=== PATIENT | male | born 1965 | race Caucasian/White ===

== ENCOUNTER 2019-06-09 17:47 | Inpatient (IN) | payer BC ==
[2019-06-09] MEDS ORDERED: ADENOSINE 6 MG/ 2ML VIAL IV ONE ×3 (18:08→18:50)
[2019-06-09] MEDS ORDERED: NA CHLORIDE 0.9% 2,000 ML ONE (18:09)
[2019-06-09 18:12] LABS: Absolute Lymphocytes (CBC) 1.6 K/uL (0.7-4.9); Hematocrit 51.5 % (39.6-49.0); Lymphocytes % 14.4 % (15.3-44.8); MPV 8.9 fL (7.6-11.3); RBC Red Blood Cell Count 5.72 M/uL (4.33-5.43)
[2019-06-09 18:14] LABS: Protime INR 1.33
[2019-06-09] MEDS ORDERED: FENTANYL CITR 100 MCG/2 ML ONE ×2 (18:17→19:04)
[2019-06-09] MEDS ORDERED: METOPROLOL TARTRATE 5 MG/5 ML INJ IV ONE (18:26)
[2019-06-09] MEDS ORDERED: MIDAZOLAM HCL 2 MG/2 ML INJ ONE ×2 (18:27→18:58)
[2019-06-09 18:31] LABS: ALT/SGPT 42 U/L (12-78); AST/SGOT 16 U/L (15-37); Albumin 4.3 g/dL (3.4-5.0); Alkaline Phosphatase 82 U/L (45-117); BUN Blood Urea Nitrogen 18 mg/dL (7-18); Bicarbonate 26 mmol/L (21-32); Bilirubin Direct 0.2 mg/dL (0-0.2); Bilirubin Total 0.9 mg/dL (0.2-1.0); Glucose Level 90 mg/dL (74-106); Magnesium 2.4 mg/dL (1.8-2.4); NT PRO-BNP 82 pg/mL (<125); Protein, Total 8.5 g/dL (6.4-8.2); Sodium Level 140 mmol/L (136-145); Troponin (Emerg Dept Use Only) < 0.02 ng/mL (0.0-0.045)
[2019-06-09] MEDS ORDERED: METOPROLOL TAR 25 MG TAB ONE ×2 (18:46→19:13)
--- NOTE | 2019-06-09 19:25 | RAD REPORT ---
EXAM DESCRIPTION: RAD - Chest Single View - 06/09/2019 7:09 pm CLINICAL HISTORY: CHEST PAIN COMPARISON: Chest Pa And Lat (2 Views) dated 12/02/2018; CHEST PA AND LAT 2 VIEW dated 04/25/2012None. TECHNIQUE: AP portable chest image was obtained 06/09/2019 7:09 pm . FINDINGS: Slightly underinflated lung henning noted. No peripheral mass consolidation. Heart size is normal. Central vasculature and central interstitial pattern is fractionally increased over the lion rison. No measurable pleural effusion and no pneumothorax. No acute bony abnormality seen. No acute a ortic findings suspected. IMPRESSION: Vasculature and lung markings centrally are slightly increased over comparison. Minimal failure or volume overload is suspected but needs correlation with clinical presentation.
--- NOTE | 2019-06-09 20:37 | EDPHYS ---
Physician Documentation [facility] Name: Efren Bernabe Age: 54 yrs Sex: Male : 1965 Arrival Date: 06/09/2019 Time: 17:49 Bed 18 Private MD: Venkatesh Mendoza ED Physician Pavel Almeida HPI: 06/09 18:55 This 54 yrs old Male presents to ER via Wheelchair with complaints of Rapid la1 heart rate. 18:55 The patient presents with a history of heart racing. Context: The symptoms occur at la1 rest. Onset: The symptoms/episode began/occurred this morning. Duration: The patient or guardian reports a single episode, that is still ongoing. Modifying factors: The symptoms are aggravated by nothing. The symptoms are alleviated by nothing. Associated signs and symptoms: Pertinent positives: lightheadedness, near-syncope, Pertinent negatives: chest pain, cough. Severity of symptoms: At their worst the symptoms were severe in the emergency department the symptoms are unchanged. The patient has experienced similar episodes in the past, several times. Pt reports he has hx of SVT, usually is able to vagal out of it at home. Pt has continuous episode since this morning. Has never had to been shocked or had adenosine before. . Historical: - Allergies: 18:11 oseltamivir phosphate; iw 18:11 Sulfa (Sulfonamide Antibiotics); iw - Home Meds: 18:11 aspirin 81 mg Oral TbEC 1 tab once daily [Active]; Cymbalta 20 mg Oral cpDR 1 cap daily iw [Active]; 18:56 etodolac 300 mg Oral cap 1 cap 2 times per day [Active]; tw2 - PMHx: 18:11 Anxiety; Depression; SVT; iw - PSHx: 18:56 R arm surgery; L knee surgery; leg vascular surgery; tw2 - Immunization history:: Adult Immunizations. - Social history:: Smoking status: . - Ebola Screening: : Patient denies travel to an Ebola-affected area in the 21 days before illness onset. ROS: 18:56 Eyes: Negative for injury, pain, redness, and discharge. la1 18:56 Constitutional: Negative for fever, chills, and weight loss, ENT: Negative for injury, pain, and discharge, Neck: Negative for injury, pain, and swelling. 18:56 Respiratory: Negative for shortness of breath, cough, wheezing, and pleuritic chest pain, Abdomen/GI: Negative for abdominal pain, nausea, vomiting, diarrhea, and constipation, Back: Negative for injury and pain, MS/Extremity: Negative for injury and deformity, Neuro: Negative for headache, weakness, numbness, tingling, and seizure. 18:56 Constitutional: 18:56 Cardiovascular: Positive for palpitations. Exam: 18:57 Head/Face: Normocephalic, atraumatic. Eyes: Periorbital areas with no swelling, la1 redness, or edema. ENT: . Mucous membranes moist. Neck: Trachea midline Chest/axilla: Normal chest wall appearance and motion. Nontender with no deformity. No lesions are appreciated. 18:57 Respiratory: Lungs have equal breath sounds bilaterally, clear to auscultation Abdomen/GI: Soft, non-tender, with normal bowel sounds. No guarding or rebound. No evidence of tenderness throughout. Back: No spinal tenderness. No costovertebral tenderness. Full range of motion. MS/ Extremity: Pulses equal, no cyanosis. Neurovascular intact. Full, normal range of motion. Neuro: Awake and alert, GCS 15, oriented to person, place, time, and situation. 18:57 Constitutional: The patient appears alert, awake, non-diaphoretic, well groomed, well nourished, anxious, uncomfortable. 18:57 Cardiovascular: Rate: tachycardic, actual rate is 187 bpm, Rhythm: regular, Pulses: Pulses are 3+ in right radial artery and left radial artery. Heart sounds: normal, normal S1and S2, Edema: is not appreciated. 18:57 ECG was reviewed by the Attending Physician. Vital Signs: 18:07 BP 123 / 76; Pulse 195; Resp 20; Temp 98.2; Pulse Ox 95% on R/A; iw 18:27 BP 105 / 55; Pulse 163; Resp 17; Pulse Ox 97% on 2 lpm NC; tw2 18:27 BP 102 / 66; Pulse 174; Resp 18; Pulse Ox 100% on 2 lpm NC; tw2 18:29 BP 118 / 91; Pulse 189; Resp 17; Pulse Ox 95% on 2 lpm NC; tw2 18:33 Pulse 114; tw2 18:44 Weight 106.59 kg (R); tw2 18:52 BP 101 / 56; Pulse 165; Resp 14; Pulse Ox 96% on 2 lpm NC; tw2 18:52 BP 101 / 56; Pulse 164; tw2 19:40 BP 103 / 54; Pulse 158; Resp 18; Pulse Ox 98% ; ea 20:10 BP 107 / 77; Pulse 161; Resp 18; Pulse Ox 100% ; ea 21:25 BP 96 / 55; Pulse 155; Resp 18; Temp 98; Pulse Ox 99% ; ea 22:12 BP 105 / 83; Pulse 160; Resp 18; Pulse Ox 99% on R/A; ea Procedures: 19:13 Cardioversion: (synchronized) for treatment of SVT, with 200 joules X 1. 300 joules X rn 1. Post procedure rhythm is sinus rhythm, the patient tolerated the procedure well. Moderate sedation: Pre-procedure assessment: the patient has been NPO 4 hour(s) prior to arrival, ASA physical classification: I - healthy, no underlying organic disease, Airway assessment: able to hyperextend neck, able to maintain airway, can open mouth without difficulty, Monitoring during procedure: cardiac monitor technician, continuous pulse oximetry, nurse at bedside at all times, Medications employed: Fentanyl, Versed, Post-procedure assessment: the patient is mildly sedated, Respiratory status: even and unlabored, a reversal agent was not used. MDM: 18:15 Patient medically screened. la1 20:12 Data reviewed: vital signs, nurses notes, EKG, radiologic studies, I have discussed the la1 patient's presentation/case with the attending Emergency Department Physician; and as a result, I will admit patient. Data interpreted: Pulse oximetry: on room air is 96 %. Interpretation: normal. Test interpretation: by ED physician or midlevel provider: ECG. Counseling: I had a detailed discussion with the patient and/or guardian regarding: the historical points, exam findings, and any diagnostic results supporting the discharge/admit diagnosis, the presence of at least one elevated blood pressure reading (>120/80) during this emergency department visit, lab results, radiology results, the need for further work-up and treatment in the hospital. Medication response: adenosine, metoprolol. Response to treatment: There is no appreciated change of the patient's symptoms at this time. Physician consultation: Brian Onofre MD was called at 19:00, was contacted at 19:05, regarding patient's condition, rec. admit to ICU, no new meds at this time. 20:37 ED course: Admitting physician present in ED, discussed case with Dr. Onofre again, no la1 new orders received, pt will be monitored in ICU overnight and Dr. Onofre will see in the morning. . 06/09 18:00 Order name: Basic Metabolic Panel; Complete Time: 18:59 [facility] 06/09 18:00 Order name: CBC with Diff; Complete Time: 18:59 [facility] 06/09 18:00 Order name: LFT's; Complete Time: 18:59 [facility] 06/09 18:00 Order name: Magnesium; Complete Time: 18:59 [facility] 06/09 18:00 Order name: NT PRO-BNP; Complete Time: 18:59 [facility] 06/09 18:00 Order name: PT-INR; Complete Time: 18:59 [facility] 06/09 18:00 Order name: Troponin (emerg Dept Use Only); Complete Time: 18:59 [facility] 06/09 22:03 Order name: Lipid Profile [facility] 06/09 22:03 Order name: Lipid Profile [facility] 06/09 22:03 Order name: CBC with Automated Diff [facility] 06/09 22:03 Order name: CBC with Automated Diff [facility] 06/09 22:03 Order name: Comprehensive Metabolic Panel [facility] 06/09 22:03 Order name: Comprehensive Metabolic Panel [facility] 06/09 22:03 Order name: Magnesium [facility] 06/09 18:00 Order name: XRAY Chest (1 view); Complete Time: 19:29 [facility] 06/09 22:03 Order name: Echo with Doppler [facility] 06/09 22:03 Order name: Magnesium [facility] 06/09 22:04 Order name: CKMB Creatine Kinase MB [facility] 06/09 22:04 Order name: CKMB Creatine Kinase MB [facility] 06/09 22:04 Order name: CKMB Creatine Kinase MB [facility] 06/09 22:04 Order name: CKMB Creatine Kinase MB [facility] 06/09 22:04 Order name: Troponin I [facility] 06/09 22:04 Order name: Troponin I [facility] 06/09 22:04 Order name: Troponin I [facility] 06/09 22:04 Order name: Troponin I [facility] 06/09 22:04 Order name: Thyroid Stimulating Hormone [facility] 06/09 22:04 Order name: Thyroid Stimulating Hormone [facility] 06/09 22:04 Order name: Urinalysis [facility] 06/09 18:00 Order name: EKG; Complete Time: 18:02 [facility] 06/09 18:00 Order name: Cardiac monitoring; Complete Time: 18:54 [facility] 06/09 18:00 Order name: EKG - Nurse/Tech; Complete Time: 18:54 [facility] 06/09 18:00 Order name: IV Saline Lock; Complete Time: 18:54 [facility] 06/09 18:00 Order name: Labs collected and sent; Complete Time: 18:55 [facility] 06/09 18:00 Order name: O2 Per Protocol; Complete Time: 18:55 [facility] 06/09 18:00 Order name: O2 Sat Monitoring; Complete Time: 18:55 [facility] 06/09 22:03 Order name: Heart Healthy [facility] Administered Medications: 18:08 Drug: Adenosine 12 mg Route: IVP; Site: right antecubital; tw2 18:50 Follow up: Response: No adverse reaction; No change in condition tw2 18:19 Drug: fentaNYL (PF) 25 mcg Route: IVP; Site: right antecubital; tw2 18:51 Follow up: Response: No adverse reaction tw2 18:20 Drug: Adenosine 12 mg Route: IVP; Site: right antecubital; tw2 18:43 Follow up: Response: No adverse reaction; No change in condition tw2 18:24 Drug: fentaNYL (PF) 25 mcg Route: IVP; Site: right antecubital; tw2 18:50 Follow up: Response: No adverse reaction tw2 18:25 Drug: Versed 1 mg Route: IVP; Site: right antecubital; tw2 18:51 Follow up: Response: No adverse reaction tw2 18:25 Drug: Versed 0.5 mg Route: IVP; Site: right antecubital; tw2 18:58 Follow up: Response: No adverse reaction tw2 18:27 Drug: fentaNYL (PF) 50 mcg Route: IVP; Site: right antecubital; tw2 18:51 Follow up: Response: No adverse reaction; RASS: Drowsy (-1) tw2 18:29 Drug: Versed 0.5 mg Route: IVP; Site: right antecubital; tw2 18:51 Follow up: Response: No adverse reaction tw2 18:32 Drug: Metoprolol 2.5 mg Route: IVP; Site: right antecubital; tw2 18:51 Follow up: Response: No adverse reaction tw2 18:35 Drug: Metoprolol 2.5 mg Route: IVP; Site: right antecubital; tw2 18:50 Follow up: Response: No adverse reaction tw2 18:41 CANCELLED (Duplicate Order): Adenocard 12 mg IVP once tw2 18:49 Drug: Adenosine 12 mg Route: IVP; Site: right antecubital; tw2 18:52 Follow up: BP 101 / 56; Pulse 164 bpm; Response: No adverse reaction; No change in tw2 condition 18:58 Drug: Versed 1 mg Route: IVP; Site: right antecubital; tw2 18:58 Follow up: Response: No adverse reaction tw2 19:00 Drug: NS 0.9% 1000 ml Route: IV; Rate: 1 bolus; Site: right antecubital; ea 19:28 Follow up: Response: No adverse reaction; IV Status: Completed infusion; IV Intake: ea 1000ml 19:02 Drug: Versed 1 mg Route: IVP; Site: right antecubital; ea 19:14 Follow up: Response: No adverse reaction ea 19:02 Drug: fentaNYL (PF) 25 mcg Route: IVP; Site: right antecubital; ea 19:14 Follow up: Response: No adverse reaction; Pain is decreased ea 19:04 Drug: fentaNYL (PF) 25 mcg Route: IVP; Site: right antecubital; ea 19:14 Follow up: Response: No adverse reaction ea 19:08 Drug: Metoprolol 5 mg Route: IVP; Site: right antecubital; ea 19:15 Follow up: Response: No adverse reaction ea 19:12 Drug: Metoprolol 25 mg Route: PO; ea 19:15 Follow up: Response: No adverse reaction ea Disposition: 06/10 08:13 Co-signature as Attending Physician, Pavel Almeida MD. rn Disposition: 06/09/19 20:37 Hospitalization ordered by Leeanna Stanley for Inpatient Admission. Preliminary diagnosis is Supraventricular tachycardia. - Bed requested for Intensive Care Unit. - Status is Inpatient Admission. ea - Condition is Stable. - Problem is new. - Symptoms are unchanged. UTI on Admission? No Signatures: Dispatcher [employer] EDMS Rolf Vicente PA PA jmm Williams, Irene, RN RN iw Pavel Almeida MD MD rn Johnson Delaney, CONTROLS DESIGN ENGINEER-C CONTROLS DESIGN ENGINEER-Cla1 Susanna Avila, RN RN tl1 Jesica Burris, KHANH RN tw2 Zulma Bustamante RN RN ea Corrections: (The following items were deleted from the chart) 06/09 18:41 18:34 Adenocard 12 mg IVP once ordered. tw2 tw2 21:27 20:37 Hospitalization Ordered by Leeanna Stanley MD for Inpatient Admission. Preliminary tl1 diagnosis is Supraventricular tachycardia. Bed requested for Intensive Care Unit. Status is Inpatient Admission. Condition is Stable. Problem is new. Symptoms are unchanged. UTI on Admission? No. la1 23:43 21:27 06/09/2019 20:37 Hospitalization Ordered by Leeanna Stanley MD for Inpatient ea Admission. Preliminary diagnosis is Supraventricular tachycardia. Bed requested for Intensive Care Unit. Status is Inpatient Admission. Condition is Stable. Problem is new. Symptoms are unchanged. UTI on Admission? No. tl1
--- NOTE | 2019-06-09 20:37 | ER ---
Nurse's Notes [facility] Name: Efren Bernabe Age: 54 yrs Sex: Male : 1965 Arrival Date: 06/09/2019 Time: 17:49 Bed 18 Private MD: Venkatesh Mendoza Diagnosis: Supraventricular tachycardia Presentation: 06/09 18:00 Presenting complaint: Patient states: been feeling his heart race off and on all day, iw hx of SVT, usually can make it stop on his own, pt also feeling like he was going to pass out. Transition of care: patient was not received from another setting of care. Onset of symptoms was June 09, 2019. Risk Assessment: Do you want to hurt yourself or someone else? Patient reports no desire to harm self or others. Initial Sepsis Screen: Does the patient meet any 2 criteria? No. Patient's initial sepsis screen is negative. Does the patient have a suspected source of infection? No. Patient's initial sepsis screen is negative. Care prior to arrival: None. 18:00 Method Of Arrival: Wheelchair iw 18:00 Acuity: MIN 1 iw Triage Assessment: 18:00 General: Appears ill, Behavior is cooperative. Pain: Denies pain. Cardiovascular: tw2 Reports diaphoresis, palpitations. Historical: - Allergies: 18:11 oseltamivir phosphate; iw 18:11 Sulfa (Sulfonamide Antibiotics); iw - Home Meds: 18:11 aspirin 81 mg Oral TbEC 1 tab once daily [Active]; Cymbalta 20 mg Oral cpDR 1 cap daily iw [Active]; 18:56 etodolac 300 mg Oral cap 1 cap 2 times per day [Active]; tw2 - PMHx: 18:11 Anxiety; Depression; SVT; iw - PSHx: 18:56 R arm surgery; L knee surgery; leg vascular surgery; tw2 - Immunization history:: Adult Immunizations. - Social history:: Smoking status: . - Ebola Screening: : Patient denies travel to an Ebola-affected area in the 21 days before illness onset. Screenin:29 Abuse screen: Denies threats or abuse. Nutritional screening: No deficits noted. tw2 Tuberculosis screening: No symptoms or risk factors identified. Fall Risk None identified. Assessment: 18:00 General: Appears uncomfortable, well groomed, Behavior is cooperative, anxious. Pain: iw Denies pain. Neuro: Level of Consciousness is awake, alert, obeys commands, Oriented to person, place, time, situation, Moves all extremities. Full function. Cardiovascular: Reports lightheadedness, palpitations, Patient's skin is warm and dry. Rhythm is SVT. Cardiovascular: Heart tones S1 S2 present Pulses are all present. Respiratory: Airway is patent Respiratory effort is even, unlabored, Respiratory pattern is regular, symmetrical. GI: Abdomen is flat, non-distended. Musculoskeletal: Range of motion: intact in all extremities. 18:08 Reassessment: provider BETO Bear at bedside at this time, medication orders tw2 given. 18:29 Reassessment: Dr. Almeida at bedside at this time. tw2 18:56 Reassessment: xray at bedside at this time. tw2 19:55 General: Appears in no apparent distress. Behavior is appropriate for age. Neuro: Level ea of Consciousness is awake, alert, obeys commands, Oriented to person, place, time, situation. Respiratory: Airway is patent Respiratory effort is even, unlabored, Respiratory pattern is regular, symmetrical. Derm: Skin is pink, warm \T\ dry. 20:49 Reassessment: Patient and/or family updated on plan of care and expected duration. Pain ea level reassessed. Patient is alert, oriented x 3, equal unlabored respirations, skin warm/dry/pink. 20:53 Reassessment: Patient and/or family updated on plan of care and expected duration. Pain ea level reassessed. Patient is alert, oriented x 3, equal unlabored respirations, skin warm/dry/pink. Hospitalist at bedside. 22:56 Reassessment: Patient and/or family updated on plan of care and expected duration. Pain ea level reassessed. Patient is alert, oriented x 3, equal unlabored respirations, skin warm/dry/pink. Report given to receiving ICU nurse. 23:10 Reassessment: Patient and/or family updated on plan of care and expected duration. Pain ea level reassessed. Patient is alert, oriented x 3, equal unlabored respirations, skin warm/dry/pink. Pt admitted to ICU, left ED via stretcher per nurse. Pt accompanied by family. Pt tolerated well. Vital Signs: 18:07 BP 123 / 76; Pulse 195; Resp 20; Temp 98.2; Pulse Ox 95% on R/A; iw 18:27 BP 105 / 55; Pulse 163; Resp 17; Pulse Ox 97% on 2 lpm NC; tw2 18:27 BP 102 / 66; Pulse 174; Resp 18; Pulse Ox 100% on 2 lpm NC; tw2 18:29 BP 118 / 91; Pulse 189; Resp 17; Pulse Ox 95% on 2 lpm NC; tw2 18:33 Pulse 114; tw2 18:44 Weight 106.59 kg (R); tw2 18:52 BP 101 / 56; Pulse 165; Resp 14; Pulse Ox 96% on 2 lpm NC; tw2 18:52 BP 101 / 56; Pulse 164; tw2 19:40 BP 103 / 54; Pulse 158; Resp 18; Pulse Ox 98% ; ea 20:10 BP 107 / 77; Pulse 161; Resp 18; Pulse Ox 100% ; ea 21:25 BP 96 / 55; Pulse 155; Resp 18; Temp 98; Pulse Ox 99% ; ea 22:12 BP 105 / 83; Pulse 160; Resp 18; Pulse Ox 99% on R/A; ea ED Course: 17:49 Patient arrived in ED. mr 17:50 Venkatesh Mendoza MD is Private Physician. mr 18:00 Bed in low position. Call light in reach. Adult w/ patient. pt placed on life pack at tw2 this time. child monitor on. Pulse ox on. NIBP on. Notified ED physician of vital signs. Notified Nurse Practitioner and/or Physician Assembler Garment Form of. 18:00 Arm band placed on. tw2 18:00 Inserted saline lock: 20 gauge in right antecubital area, using aseptic technique. tw2 Blood collected. 18:10 Triage completed. iw 18:12 Jesica Burris RN is Primary Nurse. tw2 18:15 Johnson Del[facility]C [facility] la1 18:15 Pavel Almeida MD is Attending Physician. la1 18:33 Assist provider with cardioversion (unsynchronized) with pads, for treatment of SVT tw2 with 200 joules X 1. Set up for procedure. Performed by Pavel Almeida MD Monitored with quality assurance monitor final, pulse ox, Post procedure rhythm is unchanged. Patient tolerated Latrice Phillips NP, BETO Mckinnon, and KHANH Vega at bedside at this time. 18:55 Johnson Delaney FNP-C is [facility]. la1 19:05 Report given to KHANH Ramirez. tw2 19:06 Assist provider with cardioversion with pads, for treatment of SVT with 300 joules Set ea up for procedure. Performed by Pavel Almeida MD Monitored with quality assurance monitor final, pulse ox, Post procedure rhythm is sinus rhythm. Patient tolerated well. 19:10 XRAY Chest (1 view) In Process Unspecified. EDMS 20:36 Leeanna Stanley MD is Hospitalizing Provider. la1 20:53 Patient admitted, IV remains in place. ea Administered Medications: 18:08 Drug: Adenosine 12 mg Route: IVP; Site: right antecubital; tw2 18:50 Follow up: Response: No adverse reaction; No change in condition tw2 18:19 Drug: fentaNYL (PF) 25 mcg Route: IVP; Site: right antecubital; tw2 18:51 Follow up: Response: No adverse reaction tw2 18:20 Drug: Adenosine 12 mg Route: IVP; Site: right antecubital; tw2 18:43 Follow up: Response: No adverse reaction; No change in condition tw2 18:24 Drug: fentaNYL (PF) 25 mcg Route: IVP; Site: right antecubital; tw2 18:50 Follow up: Response: No adverse reaction tw2 18:25 Drug: Versed 1 mg Route: IVP; Site: right antecubital; tw2 18:51 Follow up: Response: No adverse reaction tw2 18:25 Drug: Versed 0.5 mg Route: IVP; Site: right antecubital; tw2 18:58 Follow up: Response: No adverse reaction tw2 18:27 Drug: fentaNYL (PF) 50 mcg Route: IVP; Site: right antecubital; tw2 18:51 Follow up: Response: No adverse reaction; RASS: Drowsy (-1) tw2 18:29 Drug: Versed 0.5 mg Route: IVP; Site: right antecubital; tw2 18:51 Follow up: Response: No adverse reaction tw2 18:32 Drug: Metoprolol 2.5 mg Route: IVP; Site: right antecubital; tw2 18:51 Follow up: Response: No adverse reaction tw2 18:35 Drug: Metoprolol 2.5 mg Route: IVP; Site: right antecubital; tw2 18:50 Follow up: Response: No adverse reaction tw2 18:41 CANCELLED (Duplicate Order): Adenocard 12 mg IVP once tw2 18:49 Drug: Adenosine 12 mg Route: IVP; Site: right antecubital; tw2 18:52 Follow up: BP 101 / 56; Pulse 164 bpm; Response: No adverse reaction; No change in tw2 condition 18:58 Drug: Versed 1 mg Route: IVP; Site: right antecubital; tw2 18:58 Follow up: Response: No adverse reaction tw2 19:00 Drug: NS 0.9% 1000 ml Route: IV; Rate: 1 bolus; Site: right antecubital; ea 19:28 Follow up: Response: No adverse reaction; IV Status: Completed infusion; IV Intake: ea 1000ml 19:02 Drug: Versed 1 mg Route: IVP; Site: right antecubital; ea 19:14 Follow up: Response: No adverse reaction ea 19:02 Drug: fentaNYL (PF) 25 mcg Route: IVP; Site: right antecubital; ea 19:14 Follow up: Response: No adverse reaction; Pain is decreased ea 19:04 Drug: fentaNYL (PF) 25 mcg Route: IVP; Site: right antecubital; ea 19:14 Follow up: Response: No adverse reaction ea 19:08 Drug: Metoprolol 5 mg Route: IVP; Site: right antecubital; ea 19:15 Follow up: Response: No adverse reaction ea 19:12 Drug: Metoprolol 25 mg Route: PO; ea 19:15 Follow up: Response: No adverse reaction ea Intake: 19:28 IV: 1000ml; Total: 1000ml. ea Outcome: 20:37 Decision to Hospitalize by Provider. la1 20:51 Instructed on the need for admit, Demonstrated understanding of instructions. ea 22:57 Admitted to ICU accompanied by nurse, via stretcher, room 7, on monitor, with chart, ea Report called to Receiving nurse in ICU 22:57 Condition: stable 23:43 Patient left the ED. ea Signatures: Dispatcher [facility] Desi Alatorre Irene, RN RN iw Johnson Delaney, NEEDLE PUNCH MACHINE OPERATOR HELPER-C NEEDLE PUNCH MACHINE OPERATOR HELPER-Cla1 Jesica Burris RN RN tw2 Zulma Bustamante RN RN ea Corrections: (The following items were deleted from the chart) 18:49 18:45 Assist provider with cardioversion (unsynchronized) with pads, for treatment of tw2 SVT with 200 joules X 1. Set up for procedure. Performed by Pavel Almeida MD Monitored with quality assurance monitor final, pulse ox, Post procedure rhythm is unchanged. Patient tolerated Dr. Almeida, Latrice, GONZÁLEZ, BETO Mckinnon, and KHANH Vega at bedside at this time. tw2
[2019-06-09] MEDS ORDERED: MORPHINE 4 MG/ML SYR IV PRN (22:00)
[2019-06-09] MEDS ORDERED: ONDANSETRON 4 MG/2 ML VIAL IV PRN (22:00)
--- NOTE | 2019-06-09 22:06 | P.HP ---
Certification for Inpatient With expected LOS: >2 Midnights Practitioner: I am a practitioner with admitting privileges, knowledge of patient current condition, hospital course, and medical plan of care. Services: Services provided to patient in accordance with Admission requirements found in Title 42 Section 412.3 of the Code of Federal Regulations Patient History Date of Service: 06/10/19 Reason for admission: SVT/palpitations/sob/ History of Present Illness: mick rucker is a 54yoM w/ pmhx of PE, DVT, SVT x 10 yrs and not on anti- arrythmic therapy, protein S deficiency/antiphospholipid syndrome who presented to the ED w/ palpitations, dizziness and weakness. he states that he was first made aware of having SVT 10 years ago, visited a track maintainer and has never had an ablation or started on anti arrhythmic medications. in 2012 he was first dx w / a lower extremity superficial thrombosis and treated w/ anti coagulation of which he was removed from. he then again found to have dvt again in 2015 and again treated and discontinued. he then in 2018 found to have dvt and PE and started on anticoagulation. he was removed from treatment and then sent to a tow motor operator after which found to have protein S deficiency/antiphospholipid syndrome and thus restarted on anticoagulation and has been restarted on xarelto 20mg daily since feb 2019. today he reports that he woke this AM feeling "sick" with 2 days of raspy/itchy throat, congestion, cough w/ clear phelgm, and overrall mild malaise. he states he had a recent episode of feeling this way when diagnosed w/ blood clotting factor deficiencies. he states that the morning of admission he took the OTC generic brand of night quil. unclear of whether before or after the medication he states that he started to have racing HR and palpitations. he states that he would bear down (valsalva maneuver) and take deep breaths that would essentially break the fast HR for a few seconds and then the racing heart would return. he has down this home treatment severally over the last 10 years with resolution of his s/s and has never been hospitalized due to SVT, however this time he was unable to improve his HR with his home maneuvers. in the ER his HR went up to 185 and he was met w/ adenosine x3, IV and PO betablocker administration and shocks x2 w/ 200 and 300J. each time/intervention helped to improve the speed of his HR but overrall he remained tachycardic up to 150's. cardiology has seen pt in the ED as well, with plausible need for ablation in the morning. denies n/v/cp/otero/LE swelling, tobacco, drug or etoh use. 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 he has not had his age appropriate cancer screening - colonoscopy. Allergies oseltamivir phosphate [From Tamiflu] Allergy (Verified 04/25/12 16:52) Rash Sulfa (Sulfonamide Antibiotics) [Sulfa(Sulfonamide Antibiotics)] Allergy ( Verified 04/25/12 16:52) Rash Home Medications: Aspirin [Aspirin EC 81 MG] 81 mg PO DAILY 06/10/19 Duloxetine [Cymbalta Dalayed Release Pellets] 20 mg PO DAILY 06/10/19 L.acidoph,Paracasei, B.lactis [Probiotic] 1 each PO DAILY 06/10/19 Omeprazole 20 mg PO DAILY 06/10/19 Rivaroxaban [Xarelto] 20 mg PO DAILY 06/10/19 - Past Medical/Surgical History Diabetic: No -: tachycardia Dr Mendoza -: depression -: superficial thrombosis in left calf in 2012. Tx blood thinners. -: L knee scope -: rt hand surg -: L inguinalhernia repair -: and interventional vascular. killed the varcious superifical -: .....veins. killed with saline inj - Family History Mother -: Heart disease, Diabetes Father -: Heart disease Sister -: Diabetes - Social History Alcohol use: No CD- Drugs: No Caffeine use: Yes Review of Systems General: Weakness Eyes: Unremarkable ENT: Other (itching throat and raspy voice) Respiratory: Cough, SOB with Excertion Cardiovascular: Light Headedness Gastrointestinal: Unremarkable Genitourinary: Unremarkable Musculoskeletal: Unremarkable Integumentary: Unremarkable Neurological: Unremarkable Physical Examination - Physical Exam General: Alert, In no apparent distress, Oriented x3, Cooperative, Other ( appears concerned, no acute or respiratory distress) HEENT: Atraumatic, PERRLA Neck: Supple Respiratory: Normal air movement, Other (no rales) Cardiovascular: No edema, No murmurs, Other (tachycardia) Capillary refill: <2 Seconds Gastrointestinal: Normal bowel sounds, Soft and benign, Non-distended, No guarding Musculoskeletal: No clubbing Neurological: Normal speech, Other (gait not tested) External genitalia: Deferred Rectal: Deferred - Studies Laboratory Data (last 24 hrs) 06/09/19 18:02: PT 15.5 H, INR 1.33 06/09/19 18:02: WBC 11.1 H, Hgb 17.1, Hct 51.5 H, Plt Count 259 06/09/19 18:02: Sodium 140, Potassium 4.0, BUN 18, Creatinine 1.73 H, Glucose 90 , Magnesium 2.4, Total Bilirubin 0.9, AST 16, ALT 42, Alkaline Phosphatase 82 Assessment and Plan - Plan 54yoM admitted w/ SVT HR ~155 after adenosine, BB and shocks x2 w/ 200 and 300J admit to ICU trend CE, obtain tsh, a1c and lipid panel TTE, cardio consulted monitor on tele will start BB PO in the AM monitor o2 sat and monitor for signs of becoming unstable. protein S deficiency/ antiphospholipid deficiency c/w xarelto DVT ppx - already on xarelto - will continue - Advance Directives Does patient have a Living Will: No Does patient have a Durable POA for Healthcare: No
--- NOTE | 2019-06-09 23:19 | CON ---
Identifying Information: A 54-year-old man. Reason For Consult: SVT, supraventricular tachycardia. History Of Present Illness: Mr. Bernabe has had SVT off and on for about 10 years, all the other spel ls have been fine. This morning, he took a NyQuil because of a scratchy throat, it may have had a ps eudoephedrine-type drug within it and about 10 o'clock this morning went into SVT. He came to the em ergency room, he was successfully gotten out of SVT 3 different times with adenosine and with direct current cardioversion, but each time he has reverted back into SVT, remains in SVT. He takes Eliquis because of a clotting disorder. He has lupus anticoagulant and protein S deficiency, never had a pu lmonary embolus or DVT. He has never had an ablation. No history of myocardial infarction or stroke . Does not have diabetes, dyslipidemia, or hypertension. Never had myocardial infarction, stroke, a ny coronary interventions. He has had stress tests and other noninvasive workups that have been norm al. He does not use tobacco. Physical Examination: General: Alert, oriented, pleasant, not in distress. Lungs: Clear. Heart: Regular, very rapid about 170 beats per minute. Abdomen: Soft. Extremities: No edema, cyanosis, or clubbing. Laboratory Data: EKG when he is in sinus rhythm showed sinus tach, left atrial abnormality. Otherwi se, he is in a narrow complex rhythm. No change in the QRS or ST segments. Heart rate about 160 sourav ts per minute. 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 Most likely, he could otero ve an accessory pathway. We will continue to give beta-blockers, withhold any drugs that would be li ke pseudoephedrine and if he fails to revert to sinus rhythm overnight with beta blockers, we will get Electrophysiology consult to take over. He probably needs AV node modification. CHAVA/MODL Voice ID: [id number] Report ID: [id number]
[2019-06-09] MEDS: NA CHLORIDE 0.9% 1,000 ML IV SCH (23:52)
[2019-06-10 00:23] VITALS: BMI 33.8
[2019-06-10 02:24] LABS: Troponin I 0.13 ng/mL (0.0-0.045)
[2019-06-10 03:47] LABS: Urine Appearance CLEAR; Urine Bilirubin NEGATIVE (NEG); Urine Blood NEGATIVE (NEG); Urine Color YELLOW; Urine Glucose NEGATIVE (NEG); Urine Protein NEGATIVE (NEG); Urine Urobilinogen 0.2 mg/dL (0.2-1.0); Urine pH 6.5 (5.0-7.0)
[2019-06-10 04:10] LABS: Urine Microscopic Reflex NO UMIC
[2019-06-10 05:23] LABS: Absolute Lymphocytes (CBC) 1.7 K/uL (0.7-4.9); Basophils % 1.1 % (0-1.3); Hematocrit 42.8 % (39.6-49.0); Lymphocytes % 22.4 % (15.3-44.8); MPV 9.4 fL (7.6-11.3); RBC Red Blood Cell Count 4.75 M/uL (4.33-5.43)
[2019-06-10 05:59] LABS: Albumin 3.3 g/dL (3.4-5.0); Bilirubin Total 0.4 mg/dL (0.2-1.0); Magnesium 2.4 mg/dL (1.8-2.4); Protein, Total 6.8 g/dL (6.4-8.2); Thyroid Stimulating Hormone 1.26 uIU/mL (0.360-3.740)
[2019-06-10] MEDS ORDERED: METOPROLOL TAR 50 MG TAB PO SCH (09:00)
[2019-06-10 10:39] LABS: CKMB Creatine Kinase MB 1.3 ng/mL (0.3-3.6); Troponin I 0.14 ng/mL (0.0-0.045)
[2019-06-10 12:49] VITALS: O2SAT 100
--- NOTE | 2019-06-10 13:38 | EKG ---
Test Date: 2019-06-10 Test Time: 00:50:27 Supervisor Paste Plant: PRINCE MEASUREMENT RESULTS: Intervals: Rate: 75 NH: 134 QRSD: 88 QT: 370 QTc: 413 [place]: P: 50 NH: 134 QRS: 77 T: 35 INTERPRETIVE STATEMENTS: Normal sinus rhythm Normal ECG Compared to ECG 06/09/2019 19:15:56 Supraventricular tachycardia no longer present Electronically Signed On 06-10-19 13:37:05 SHIFT STACKER by Sin De Anda
--- NOTE | 2019-06-10 13:39 | EKG ---
Test Date: 2019-06-09 Test Time: 19:12:42 Windshield Repair Technician: PRINCE MEASUREMENT RESULTS: Intervals: Rate: 96 NC: 156 QRSD: 94 QT: 336 QTc: 424 [place]: P: 57 NC: 156 QRS: 40 T: 47 INTERPRETIVE STATEMENTS: Normal sinus rhythm Possible Left atrial enlargement Borderline ECG Compared to ECG 06/09/2019 18:35:47 Atrial premature complex(es) no longer present Electronically Signed On 06-10-19 13:37:10 RESPIRATORY TECH by Sin De Anda
--- NOTE | 2019-06-10 13:39 | EKG ---
Test Date: 2019-06-09 Test Time: 18:35:47 Financial Adviser: PRINCE MEASUREMENT RESULTS: Intervals: Rate: 91 HI: 158 QRSD: 94 QT: 312 QTc: 383 [place]: P: 61 HI: 158 QRS: 36 T: 47 INTERPRETIVE STATEMENTS: Sinus rhythm with blocked premature atrial complexes Possible Left atrial enlargement Borderline ECG Compared to ECG 06/09/2019 18:25:04 Atrial premature complex(es) now present Supraventricular tachycardia no longer present ST (T wave) deviation no longer present Electronically Signed On 06-10-19 13:37:45 HOME HEALTH CAREGIVER by Sin De Anda
--- NOTE | 2019-06-10 13:39 | EKG ---
Test Date: 2019-06-09 Test Time: 18:25:04 Garbage Collection Supervisor: PRINCE MEASUREMENT RESULTS: Intervals: Rate: 187 [place]: QRSD: 76 QT: 252 QTc: 444 [place]: P: ME: QRS: 39 T: 50 INTERPRETIVE STATEMENTS: Supraventricular tachycardia Junctional ST depression, probably normal Borderline ECG Compared to ECG 06/09/2019 18:23:29 ST (T wave) deviation now present Sinus tachycardia no longer present Electronically Signed On 06-10-19 13:37:57 LABORER BRUSH CLEARING by Sin De Anda
--- NOTE | 2019-06-10 13:39 | EKG ---
Test Date: 2019-06-09 Test Time: 19:15:56 Shell Plater: PRINCE MEASUREMENT RESULTS: Intervals: Rate: 161 [place]: QRSD: 86 QT: 300 QTc: 491 [place]: P: OR: QRS: 44 T: 37 INTERPRETIVE STATEMENTS: Supraventricular tachycardia Otherwise normal ECG Compared to ECG 06/09/2019 19:12:42 Sinus rhythm no longer present Electronically Signed On 06-10-19 13:37:09 DEPARTMENT STORE DOOR GREETER by Sin De Anda
--- NOTE | 2019-06-10 13:40 | EKG ---
Test Date: 2019-06-09 Test Time: 18:06:58 Behavioral Science Chair: MACI MEASUREMENT RESULTS: Intervals: Rate: 197 [place]: 104 QRSD: 78 QT: 226 QTc: 409 [place]: P: CA: 104 QRS: 36 T: 53 INTERPRETIVE STATEMENTS: Sinus tachycardia with short CA Nonspecific ST abnormality Abnormal ECG Compared to ECG 06/09/2019 18:06:18 Short CA interval now present ST (T wave) deviation now present Electronically Signed On 06-10-19 13:38:01 DIRECTOR OF PSYCHOLOGY by Sin De Anda
--- NOTE | 2019-06-10 13:40 | EKG ---
Test Date: 2019-06-09 Test Time: 18:06:18 Fsr: MACI MEASUREMENT RESULTS: Intervals: Rate: 109 TN: 142 QRSD: 92 QT: 298 QTc: 401 [place]: P: 48 TN: 142 QRS: 32 T: 43 INTERPRETIVE STATEMENTS: Sinus tachycardia Possible Left atrial enlargement Borderline ECG Compared to ECG 12/04/2016 06:47:33 Sinus rhythm no longer present Electronically Signed On 06-10-19 13:38:02 BUS INSPECTOR by Sin De Anda
--- NOTE | 2019-06-10 13:40 | EKG ---
Test Date: 2019-06-09 Test Time: 18:17:00 Casino Runner: PRINCE MEASUREMENT RESULTS: Intervals: Rate: 188 [place]: QRSD: 82 QT: 244 QTc: 431 [place]: P: [place]: QRS: 39 T: 41 INTERPRETIVE STATEMENTS: Supraventricular tachycardia Nonspecific ST abnormality Abnormal ECG Compared to ECG 06/09/2019 18:06:58 Sinus tachycardia no longer present Short TX interval no longer present ST (T wave) deviation still present Electronically Signed On 06-10-19 13:38:00 SUPERVISOR DENTURE DEPARTMENT by Sin De Anda
--- NOTE | 2019-06-10 13:40 | EKG ---
Test Date: 2019-06-09 Test Time: 18:23:29 Ginning Operator: PRINCE MEASUREMENT RESULTS: Intervals: Rate: 117 [place]: 138 QRSD: 88 QT: 292 QTc: 407 [place]: P: 45 [place]: 138 QRS: 47 T: 40 INTERPRETIVE STATEMENTS: Sinus tachycardia Possible Left atrial enlargement Borderline ECG Compared to ECG 06/09/2019 18:17:00 Supraventricular tachycardia no longer present ST (T wave) deviation no longer present Electronically Signed On 06-10-19 13:37:58 FLOOR INSPECTOR by Sin De Anda
--- NOTE | 2019-06-10 14:29 | PN ---
Date of Progress Note: 06/10/2019 Subjective: Mr. Bernabe is 54, was admitted by Dr. Jenkins on 06/09/2019, and seen for SVT. This SVT h as been unresponsive to carotid massage, to other vagal maneuvers, was unresponsive to adenosine, unr esponsive to cardioversion. It keeps coming back at a rate of 150 to 170 despite beta-blockers. Thi s morning he was in SVT at a rate of 160 and he converted to sinus rhythm after carotid massage and i t came back after 1 minute. Plan: To send the patient for an ablation of an accessory pathway today by Dr. Gleason. Case was di scussed with Dr. Jenkins and Dr. Onofre. NB/MODL Voice ID: [id number] Report ID: [id number]
--- NOTE | 2019-06-10 14:38 | ECHO ---
HEIGHT: 6 ft 3 in WEIGHT: 271 lb 1.6 oz DATE OF STUDY: 06/10/[address]: Leeanna Stanley 2-DIMENSIONAL: YES M.MODE: YES DOPPLER: YES COLOR FLOW: YES TDS: NO PORTABLE: NO DEFINITY: NO BUBBLE STUDY: NO DIAGNOSIS: SUPRAVENTRICULAR TACHYCARDIA CARDIAC HISTORY: CATHERIZATION: NO SURGERY: NO PROSTHETIC VALVE: NO PACEMAKER: NO MEASUREMENTS (cm) DIASTOLIC (NORMALS) SYSTOLIC (NORMALS) IVSd 1.0 (0.6-1.2) LA Diam 3.8 (1.9-4.0) LVEF 56% LVIDd 4.9 (3.5-5.7) LVIDs 3.4 (2.0-3.5) %FS 29% LVPWd 1.0 (0.6-1.2) Ao Diam 3.0 (2.0-3.7) 2 DIMENSIONAL ASSESSMENT: RIGHT ATRIUM: NORMAL LEFT ATRIUM: NORMAL RIGHT VENTRICLE: NORMAL LEFT VENTRICLE: NORMAL TRICUSPID VALVE: NORMAL MITRAL VALVE: NORMAL PULMONIC VALVE: NORMAL AORTIC VALVE: NORMAL PERICARDIAL EFFUSION: NONE AORTIC ROOT: NORMAL LEFT VENTRICULAR WALL MOTION: NORMAL DOPPLER/COLOR FLOW: NORMAL COMMENTS: NORMAL 2D ECHOCARDIOGRAM WITH DOPPLER. NO MITRAL VALVE PROLAPSE. TECHNOLOGIST: Aston CISSE
[2019-06-10] MEDS: NA CHLORIDE 0.9% 1,000 ML IV SCH (14:44)
[2019-06-10 17:08] VITALS: BP 112/70
[2019-06-10 17:11] VITALS: TEMP 98.5
[2019-06-10] MEDS ORDERED: MORPHINE 2 MG/ML SYR IV PRN (18:00)
--- NOTE | 2019-06-10 23:50 | DS ---
Date of Discharge: 06/10/2019 Consultants: Dr. Onofre and Dr. De Anda with Cardiology. Discharge Diagnoses: 1.Supraventricular tachycardia status post adenosine shock x2. 2.Hypercoagulable state with protein S deficiency, antiphospholipid deficiency, on Xarelto. 3.Major depressive disorder, in remission on SSRI. 4.History of venous thromboembolism, on Xarelto. Hospital Course: Patient is a 54-year-old male, history of PE, DVT, SVT for 10 years, not on antiarr hythmic therapy on Xarelto due to protein S deficiency, antiphospholipid syndrome, comes in with palp itations. Usually the patient is able to terminate the SVT using home maneuvers including bearing do wn, however, he was unable to terminate this episode, came into the hospital, received 3 doses of cierra nosine, had to be shocked twice, but remained tachycardic. Patient was admitted to the hospital. Ca rdiology was consulted. He did have mild elevation in his troponin likely due to the cardioversion. Denied any chest pain. He did have elevated kidney function, which improved with IV fluids. Jamir quintana was then referred to Dr. Hughes at [facility] for ablation therapy and was accepted by hospitalist marisol Hughes, awaiting bed placement. Patient overall did well overnight. His heart rate has remai anish in the low 100, otherwise doing well. He will be transferred to [facility] once bed is available. Medications: As per medication reconciliation list. Diet: Heart healthy. Activity: As tolerated. Physical Examination: General: Awake, alert, and oriented x3. Obese male. CV: S1, S2. Respiratory: Moving air well bilaterally. Abdomen: Positive bowel sounds. Nondistended, nontender. Extremities: No clubbing, cyanosis, or edema. Neurologic: Nonfocal. Total time spent transferring the patient was 48 minutes. SA/MODL Voice ID: [id number] Report ID: [id number]
== END 2019-06-10 17:04 | disposition short-term general hospital (02) | DRG 309 ==
LOC: ER 17:47 → 3RD-ICU 23:09
PROVIDERS: ADMIT Internal Medicine; ATTEND Family Medicine
PROC: 5A2204Z Restoration of Cardiac Rhythm, Single (ICD-10-PCS; principal; 2019-06-10)
DX: I47.1 Supraventricular tachycardia (principal); D68.59 Other primary thrombophilia; F32.9 Major depressive disorder, single episode, unspecified
CPT/HCPCS: 36415; 71045; 80048; 80053; 80061; 80076; 81003; 82553; 83036; 83735; 83880; 84443; 84484; 85025; 85610; 92960; 93005; 93306; 96374; 96375; 99291; 99292; J0153; J2250; J3010; J7030

== ENCOUNTER 2020-02-04 00:46 | Emergency (ER) | payer BC ==
[2020-02-04] MEDS ORDERED: NA CHLORIDE 0.9% 1,000 ML ONE (01:52)
[2020-02-04 01:54] LABS: Absolute Lymphocytes (CBC) 1.4 K/uL (0.7-4.9); Basophils % 0.8 % (0-1.3); Hematocrit 48.9 % (39.6-49.0); Lymphocytes % 11.2 % (15.3-44.8); MPV 8.7 fL (7.6-11.3); RBC Red Blood Cell Count 5.34 M/uL (4.33-5.43)
[2020-02-04 02:01] LABS: Bilirubin Direct 0.2 mg/dL (0-0.2); Bilirubin Total 1.1 mg/dL (0.2-1.0); Potassium 3.9 mmol/L (3.5-5.1); Protein, Total 7.8 g/dL (6.4-8.2)
[2020-02-04] MEDS ORDERED: MEPERIDINE HCL 50 MG/ML ONE (03:37)
[2020-02-04] MEDS ORDERED: ONDANSETRON 4 MG/2 ML VIAL ONE (03:38)
--- NOTE | 2020-02-04 04:20 | ER ---
Nurse's Notes [facility] Name: Efren Bernabe Age: 54 yrs Sex: Male : 1965 Arrival Date: 02/04/2020 Time: 00:48 Bed 23 Private MD: Diagnosis: Acute sigmoid diverticulitis. Cholelithiasis. Fatty liver Chronic renal disease. 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 Pt denies F/V/N/D at this time, reports pain to feel as if gas pain/pressure, non radiating. Coronavirus screen: Client denies travel out of the [place] in the last 14 days. At this time, the client does not indicate any symptoms associated with coronavirus-19. Ebola Screen: Patient negative for fever greater than or equal to 101.5 degrees Fahrenheit, and additional compatible Ebola Virus Disease symptoms Patient denies exposure to infectious person. Patient denies travel to an Ebola-affected area in the 21 days before illness onset. No symptoms or risks identified at this time. Initial Sepsis Screen: Does the patient meet any 2 criteria? HR > 90 bpm. No. Patient's initial sepsis screen is negative. Does the patient have a suspected source of infection? Yes: Acute abdominal pain. Risk Assessment: Do you want to hurt yourself or someone else? Patient reports no desire to harm self or others. Onset of symptoms was February 04, 2020. Care prior to arrival: None. Transition of care: patient was not received from another setting of care. 01:11 Method Of Arrival: Ambulatory sg 01:11 Acuity: MIN 3 sg Historical: - Allergies: 01:02 oseltamivir phosphate; sg 01:02 Sulfa (Sulfonamide Antibiotics); sg - Home Meds: 01:02 aspirin 81 mg Oral TbEC 1 tab once daily [Active]; Cymbalta 20 mg Oral cpDR 1 cap daily sg [Active]; etodolac 300 mg Oral cap 1 cap 2 times per day [Active]; 01:16 "blood thinner" [Active]; sg - PMHx: 01:02 Anxiety; Depression; SVT; sg 01:16 Protein S deficiency; sg - PSHx: 01:02 R arm surgery; L knee surgery; leg vascular surgery; sg 01:16 Cardiac Ablation; sg - Immunization history:: Adult Immunizations up to date. - Social history:: Smoking status: Patient denies any tobacco usage or history of. Screenin:14 Abuse screen: Denies threats or abuse. Denies injuries from another. Nutritional sg screening: No deficits noted. Tuberculosis screening: No symptoms or risk factors identified. Never had TB. Fall Risk None identified. Assessment: 01:13 General: Appears in no apparent distress. uncomfortable, well groomed, well developed, sg well nourished, Behavior is calm, cooperative, appropriate for age. Neuro: Level of Consciousness is awake, alert, obeys commands, Oriented to person, place, time, Speech is normal, Facial symmetry appears normal. Cardiovascular: Capillary refill is brisk in bilateral fingers Patient's skin is warm and dry. Chest pain is denied. Respiratory: Airway is patent Respiratory effort is even, unlabored, Respiratory pattern is regular, symmetrical. GI: Bowel sounds present X 4 quads. Abd is soft X 4 quads Abdomen is tender to palpation in left upper quadrant. : No signs and/or symptoms were reported regarding the genitourinary system. EENT: No signs and/or symptoms were reported regarding the EENT system. Derm: Skin is pink, warm \\T\\ dry. Musculoskeletal: Circulation, motion, and sensation intact. Range of motion: intact in all extremities, Swelling absent. 01:29 Reassessment: at bedside assessing pt at this time, awaiting orders. sg 02:00 Reassessment: Patient appears in no apparent distress at this time. pt finished PO sg contrast, claims technician Skye notified. 02:11 Reassessment: Patient and/or family updated on plan of care and expected duration. Pain sg level reassessed. Patient is alert, oriented x 3, equal unlabored respirations, skin warm/dry/pink. awaiting CT scan at this time Patient states symptoms have not improved. 03:30 Reassessment: Patient appears in no apparent distress at this time. Patient and/or fu family updated on plan of care and expected duration. Pain level reassessed. Patient is alert, oriented x 3, equal unlabored respirations, skin warm/dry/pink. 04:37 Reassessment: Patient appears in no apparent distress at this time. Patient and/or fu family updated on plan of care and expected duration. Pain level reassessed. Patient is alert, oriented x 3, equal unlabored respirations, skin warm/dry/pink. pain subsided after Demerol IV was given Patient states feeling better. 05:38 Reassessment: Patient and/or family updated on plan of care and expected duration. Pain fu level reassessed. Patient asleep in bed, not in respiratory distress, IV Cipro ongoing. Vital Signs: 01:11 BP 125 / 88; Pulse 100; Resp 16; Temp 98.7(O); Pulse Ox 98% on R/A; Weight 104.33 kg; sg Height 6 ft. 3 in. (190.50 cm); Pain 4/10; 02:00 BP 132 / 85; Pulse 98; Resp 16; Pulse Ox 98% on R/A; Pain 5/10; fu 04:37 BP 108 / 59; Pulse 92; Resp 18; Temp 98.8(O); Pulse Ox 94% on R/A; Pain 3/10; fu 05:00 BP 108 / 55; Pulse 84; Resp 16; Pulse Ox 94% on R/A; Pain 0/10; fu 01:11 Body Mass Index 28.75 (104.33 kg, 190.50 cm) sg ED Course: 00:48 Patient arrived in ED. cf2 00:55 Jose Enrique Nye, RN is Primary Nurse. sg 01:02 Arm band placed on. sg 01:12 Triage completed. sg 01:13 Awaiting ED provider evaluation. sg 01:25 Rc Ceballos MD is Attending Physician. pkl 01:35 Initial lab(s) drawn, by tn, sent to lab. a green top has been given to [facility] for sg ISTAT testing prior to CT ordered. Inserted saline lock: 20 gauge in right antecubital area, using aseptic technique. Blood collected. 03:[address] via stretcher. sg 03:18 Zana Luther, RN is Primary Nurse. fu 03:22 Abdomen In Process Unspecified. EDMS 05:00 No provider procedures requiring assistance completed. fu 05:55 IV discontinued, bleeding controlled, Pressure dressing applied. fu Administered Medications: 01:47 Drug: NS 0.9% 1000 ml Route: IV; Rate: 1000 ml; Site: right antecubital; sg 03:33 Drug: Demerol 50 mg Route: IVP; Site: right antecubital; fu 04:03 Follow up: Response: Pain is decreased fu 03:33 Drug: Zofran (Ondansetron) 4 mg Route: IVP; Site: right antecubital; fu 04:25 Follow up: Response: No adverse reaction fu 04:26 Drug: Cipro 400 mg Volume: 200 ml; Route: IVPB; Infused Over: 60 mins; Site: right fu antecubital; 04:26 Drug: Flagyl 500 mg Volume: 100 ml; Route: IVPB; Rate: 200 ml/hr; Infused Over: 30 fu mins; Site: right antecubital; 04:54 Follow up: Response: No adverse reaction fu Outcome: 04:19 Discharge ordered by . [email or web address] 05:57 Patient left the ED. mw2 05:58 Discharged to home ambulatory. fu 05:58 Condition: good 05:58 Discharge instructions given to patient, Instructed on discharge instructions, Demonstrated understanding of instructions, follow-up care, Prescriptions given X 2. Signatures: Dispatcher [employer] Jose Enrique Garcia RN KHANH Rc Ceballos MD MD pkZana Nielsen RN Carlos Roberson 2 Radha Krueger 2
--- NOTE | 2020-02-04 04:20 | EDPHYS ---
Physician Documentation [facility] Name: Efren Bernabe Age: 54 yrs Sex: Male : 1965 Arrival Date: 02/04/2020 Time: 00:48 Bed 23 Private MD: ED Physician Rc Ceballos HPI: 02/03 01:44 This 54 yrs old Male presents to ER via Ambulatory with complaints of pkl Abdominal Pain. 01:44 The patient presents with abdominal pain in the left upper quadrant. Onset: The pkl symptoms/episode began/occurred just prior to arrival, 6 hour(s) ago. The symptoms do not radiate. Associated signs and symptoms: none. Historical: - Allergies: 01:02 oseltamivir phosphate; sg 01:02 Sulfa (Sulfonamide Antibiotics); sg - Home Meds: 01:02 aspirin 81 mg Oral TbEC 1 tab once daily [Active]; Cymbalta 20 mg Oral cpDR 1 cap daily sg [Active]; etodolac 300 mg Oral cap 1 cap 2 times per day [Active]; 01:16 "blood thinner" [Active]; sg - PMHx: 01:02 Anxiety; Depression; SVT; sg 01:16 Protein S deficiency; sg - PSHx: 01:02 R arm surgery; L knee surgery; leg vascular surgery; sg 01:16 Cardiac Ablation; sg - Immunization history:: Adult Immunizations up to date. - Social history:: Smoking status: Patient denies any tobacco usage or history of. ROS: 01:44 Eyes: Negative for injury, pain, redness, and discharge, ENT: Negative for injury, pkl pain, and discharge, Neck: Negative for injury, pain, and swelling, Cardiovascular: Negative for chest pain, palpitations, and edema, Respiratory: Negative for shortness of breath, cough, wheezing, and pleuritic chest pain. 01:44 Abdomen/GI: Positive for abdominal pain, of the left upper quadrant. 01:44 Back: Negative for acute changes. 01:44 : Negative for urinary symptoms. 01:44 MS/extremity: Negative for acute changes. 01:44 Skin: Negative for rash. 01:44 Neuro: Negative for altered mental status. Exam: 01:44 Head/Face: Normocephalic, atraumatic. Eyes: Pupils equal round and reactive to light, pkl extra-ocular motions intact. Lids and lashes normal. Conjunctiva and sclera are non-icteric and not injected. Cornea within normal limits. Periorbital areas with no swelling, redness, or edema. ENT: Nares patent. No nasal discharge, no septal abnormalities noted. Tympanic membranes are normal and external auditory canals are clear. Oropharynx with no redness, swelling, or masses, exudates, or evidence of obstruction, uvula midline. Mucous membranes moist. Neck: Trachea midline, no thyromegaly or masses palpated, and no cervical lymphadenopathy. Supple, full range of motion without nuchal rigidity, or vertebral point tenderness. No Meningismus. Chest/axilla: Normal chest wall appearance and motion. Nontender with no deformity. No lesions are appreciated. Cardiovascular: Regular rate and rhythm with a normal S1 and S2. No gallops, murmurs, or rubs. Normal PMI, no JVD. No pulse deficits. Respiratory: Lungs have equal breath sounds bilaterally, clear to auscultation and percussion. No rales, rhonchi or wheezes noted. No increased work of breathing, no retractions or nasal flaring. 01:44 Abdomen/GI: Bowel sounds: normal, Palpation: soft, mild abdominal tenderness, in the left upper quadrant. 01:44 Back: Exam negative for acute changes. 01:44 : Exam negative for acute changes. 01:44 Musculoskeletal/extremity: Exam is negative for acute changes. 01:44 Skin: Exam negative for rash. 01:44 Neuro: Orientation: is normal, Mentation: is normal, Cranial nerves: grossly normal, Motor: is normal. Vital Signs: 01:11 BP 125 / 88; Pulse 100; Resp 16; Temp 98.7(O); Pulse Ox 98% on R/A; Weight 104.33 kg; sg Height 6 ft. 3 in. (190.50 cm); Pain 4/10; 02:00 BP 132 / 85; Pulse 98; Resp 16; Pulse Ox 98% on R/A; Pain 5/10; fu 04:37 BP 108 / 59; Pulse 92; Resp 18; Temp 98.8(O); Pulse Ox 94% on R/A; Pain 3/10; fu 05:00 BP 108 / 55; Pulse 84; Resp 16; Pulse Ox 94% on R/A; Pain 0/10; fu 01:11 Body Mass Index 28.75 (104.33 kg, 190.50 cm) sg MDM: 01:25 Patient medically screened. pkl 04:12 Data reviewed: vital signs, nurses notes, lab test result(s), radiologic studies, CT pkl scan. ED course: Discussed lab and CT Scan results with patient. Advised to follow up with his PCP/ [facility] in 2 to 3 days. To return if abdominal pain is worse. Patient understood instructions. 02/03 01:31 Order name: Basic Metabolic Panel; Complete Time: 03:44 pkl 02/03 01:31 Order name: CBC with Diff; Complete Time: 03:44 pkl 02/03 01:31 Order name: Hepatic Function; Complete Time: 03:44 pkl 02/03 01:31 Order name: Lipase; Complete Time: 03:44 pkl 02/03 02:02 Order name: CREATININE WHOLE BLOOD; Complete Time: 03:44 EDMS 02/03 01:31 Order name: IV Saline Lock; Complete Time: 01:37 pkl 02/03 02:54 Order name: Abdomen EDMS 02/03 01:31 Order name: Labs collected and sent; Complete Time: 01:37 pkl Administered Medications: 01:47 Drug: NS 0.9% 1000 ml Route: IV; Rate: 1000 ml; Site: right antecubital; sg 03:33 Drug: Demerol 50 mg Route: IVP; Site: right antecubital; fu 04:03 Follow up: Response: Pain is decreased fu 03:33 Drug: Zofran (Ondansetron) 4 mg Route: IVP; Site: right antecubital; fu 04:25 Follow up: Response: No adverse reaction fu 04:26 Drug: Cipro 400 mg Volume: 200 ml; Route: IVPB; Infused Over: 60 mins; Site: right fu antecubital; 04:26 Drug: Flagyl 500 mg Volume: 100 ml; Route: IVPB; Rate: 200 ml/hr; Infused Over: 30 fu mins; Site: right antecubital; 04:54 Follow up: Response: No adverse reaction fu Disposition: 02/04/20 04:19 Discharged to Home. Impression: Acute sigmoid diverticulitis. Cholelithiasis. Fatty liver Chronic renal disease. 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 - Condition is Stable. - Prescriptions for Flagyl 500 mg Oral Tablet - take 1 tablet by ORAL route every 8 hours for 10 days; 30 tablet. Cipro 500 mg Oral Tablet - take 1 tablet by ORAL route every 12 hours for 7 days; 14 tablet. - Medication Reconciliation Form, Thank You Letter, Antibiotic Education, Prescription Opioid Use form. - Follow up: Private Physician; When: 2 - 3 days; Reason: Re-evaluation by your physician. - Problem is new. - Symptoms have improved. Signatures: Dispatcher [employer] [facility] Jose Enrique Nye, RN RN Rc Liu MD MD pkl Zana Luther RN RN Carlos Scott mw2 Corrections: (The following items were deleted from the chart) 01:33 01:32 CREATININE, SERUM+C.LAB.BRZ ordered. [facility] EDMS 02:54 01:32 Abdomen Pelvis W Con+CT.RAD.BRZ ordered. [facility] EDMS 05:57 04:19 02/04/2020 04:19 Discharged to Home. Impression: Acute sigmoid diverticulitis. mw2 Cholelithiasis. Fatty liver Chronic renal disease. 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 Condition is Stable. Forms are Medication Reconciliation Form, Thank You Letter, Antibiotic Education, Prescription Opioid Use. Follow up: Private Physician; When: 2 - 3 days; Reason: Re-evaluation by your physician. Problem is new. Symptoms have improved. pkl
[2020-02-04] MEDS ORDERED: METRONIDAZOLE 500mg IVPB 500 MG/100 ML BAG IV ONE (04:32)
[2020-02-04] MEDS ORDERED: CIPROFLOXACIN 400mg IV 400 MG/200 ML BAG IV ONE (04:32)
--- NOTE | 2020-02-04 13:07 | RAD REPORT ---
EXAM DESCRIPTION: CT - Abdomen Pelvis Wo Contrast - 02/04/2020 7:15 am CLINICAL HISTORY: 54-year-old male with left upper quadrant abdominal pain for approximately 4 to 6 hours TECHNIQUE: Axial CT imaging of the abdomen and pelvis was performed without oral or intravenous cont rast. Sagittal and coronal reconstructed images were then performed. The CT study is performed acco rding to ALARA (as low as reasonably achievable) or ALARA/IMAGE GENTLY, with automatic adjustment of mA and/or kV according to patient size. Performed on: 02/04/2020 at 3:09 AM COMPARISON: None. FINDINGS: Lung bases: The lung bases are clear. There is minimal bibasilar atelectasis and/or fibros is. Liver: The liver is enlarged and measures 22 cm in craniocaudal dimension. No focal hepatic abnormali ties are appreciated on this unenhanced scan. There is decreased attenuation of the liver commonly se en with fatty infiltration. Spleen: The spleen is normal is size, configuration and attenuation. No focal splenic abnormalities a re appreciated on this unenhanced scan. Gallbladder and bile duct: The gallbladder is well distended and contains numerous gallstones. Ther e is no biliary ductal dilatation. Pancreas: The pancreas is grossly normal in size and configuration. Adrenal Glands: The adrenal glands are normal in size and configuration. Kidneys: The kidneys are normal in size and configuration. There is no evidence of hydronephrosis. Th ere is no evidence of nephrolithiasis. No focal renal abnormalities are identified. Stomach: The stomach is grossly normal. There is no definite hiatal hernia. Bowel: The bowel gas pattern is non specific and non obstructive. There is scattered colonic divertic ulosis and there is pericolonic inflammation surrounding the junction of the descending colon and sig moid colon likely due to acute diverticulitis. There is no evidence of a peridiverticular abscess or chhaya perforation. Appendix: The appendix is not well visualized on this examination. Free air: There is no evidence of free air. Free fluid: There is no evidence of free fluid. Vasculature: The aorta is normal in caliber and contour. The inferior vena cava is grossly unremarkab le. Lymphadenopathy: No pathologic lymphadenopathy is identified. Bladder: The bladder is well distended and smooth in contour. Reproductive: The prostate gland is grossly within normal limits. Bones: No acute osseous abnormalities are identified. Soft tissues: There is a peripherally calcified oval structure in the left anterior hemipelvis just a nterior to the left femoral artery measuring approximately 2.1 x 2.3 cm in cross-sectional diameter b y 3.3 cm in craniocaudal dimension. The etiology of this is not certain. This measures approximately 7 Hounsfield units centrally and may represent a peripherally calcified mesenteric cyst or other denise gn cyst. There is a small fat-containing right inguinal hernia. There is a small coarse calcification within the right paraspinal muscles at the level of L1 IMPRESSION: 1. CT findings consistent with acute sigmoid colon diverticulitis involving the junction of the descending colon and sigmoid colon without evidence of a peridiverticular abscess or perforat ion. 2. Hepatomegaly and decreased attenuation of the liver commonly due to fatty infiltration. 3. Cholelithiasis without evidence of biliary ductal dilatation. 4. Peripherally calcified oval cystic mass in the anterior left hemipelvis just anterior to the left femoral artery measuring approximately 3.3 cm in greatest dimension. The etiology of this is not cert ain. This may represent a peripherally calcified mesenteric cyst or other benign pelvic cyst. A perip herally calcified aneurysm is considered less likely due to the low density of this mass. 5. Nonspecific small coarse calcification in the right paraspinal muscles at the level of L1. Electronically signed by: India Franz DO 02/04/2020 3:46 AM CDT Due to temporary technical issues with the PACS/Fluency reporting system, reports are being signed by the in house radiologist without review as a courtesy to ensure prompt reporting. The interpreting r adiologist is fully responsible for the content of the report.
[2020-02-04 16:13] VITALS: TEMP 98.8; O2SAT 94
[2020-02-04 16:15] VITALS: BP 108/55
== END 2020-02-04 05:57 | disposition home or self-care (01) ==
LOC: ER 00:46
DX: K57.32 Diverticulitis of large intestine without perforation or abscess without bleeding (principal); K80.20 Calculus of gallbladder without cholecystitis without obstruction; N18.9 Chronic kidney disease, unspecified; F41.8 Other specified anxiety disorders; Z79.01 Long term (current) use of anticoagulants; Z79.82 Long term (current) use of aspirin; Z88.2 Allergy status to sulfonamides; Z88.8 Allergy status to other drugs, medicaments and biological substances
CPT/HCPCS: 85025; 80048; 36415; 82565; 80076; 83690; 74176; 96375; 96374; 99284; J2175; J7030; J2405; J0744